=== PATIENT | male | born 1930 | race Caucasian/White ===

== ENCOUNTER 2016-09-23 10:17 | Emergency (ER) | payer OTHER ==
[2016-09-23 10:42] VITALS: BP 148/63; PULSE 55; TEMP 97.9; BMI 24.6
[2016-09-23] MEDS ORDERED: KETOROLAC TROMETHAMINE 60 MG/2 ML VIAL IM ONE (11:12)
[2016-09-23] MEDS ORDERED: KETOROLAC TROMETHAMINE 30 MG/1 ML VIAL ONE (11:13)
--- NOTE | 2016-09-23 11:18 | PDOC ---
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 slipped on soapy feet in the bathtub 3 days ago falling onto his buttocks and hitting his low back. Complaints of pain to his neck thoracic spine and buttocks. lives alone and has no one there to assist him. took a while to get out of the bathtub but since that time has been able to move and maintain his ADLs. Patient denies changes in bowels or bladder, denies any bleeding noted in urine or discoloration. Denies any head injury, has taken no medication for relief of same . Denies numbness or tingling in hands or feet, denies any mental status changes or significant headache. primarily is in his buttock left side and mid back. No shortness of breath chest pain or palpitation. 09/23/16 13:35 Occurred: reports: just prior to arrival Severity: reports: mild Pain Location: reports: none Modifying Factors: improves with: None Loss of Consciousness: no loss of consciousness Associated Symptoms (Fall): denies symptoms Past History - Travel Traveled outside of the country in the last 30 days: No Close contact w/someone who was outside of country & ill: No - Past Medical History Allergies/Adverse Reactions: Allergies Allergy/AdvReac Type Severity Reaction Status Date / Time No Known Allergies Allergy Verified 09/23/16 10:39 Home Medications: Ambulatory Orders Acyclovir 5% Cream [Zovirax 5% Cream -] 1 applic TP ASDIR 06/02/14 Amlodipine Besylate [Norvasc -] 5 mg PO DAILY 06/02/14 Bisacodyl [Ducodyl] 5 mg PO BID 06/02/14 Famotidine [Pepcid] 40 mg PO DAILY 06/02/14 Latanoprost 0.005% Eye Drops [Xalatan 0.005% Eye Drops -] 1 drop OU HS 06/02/14 Loratadine [Claritin -] 10 mg PO DAILY 06/02/14 Metoprolol Succinate [Toprol XL -] 100 mg PO DAILY 06/02/14 Mometasone Furoate [Nasonex] 1 - 2 inh NS DAILY 06/02/14 Montelukast Na [Singulair -] 10 mg PO HS 06/02/14 Olmesartan/Hydrochlorothiazide [Benicar Hct 40-25 mg Tablet] 1 each PO DAILY 11/08 Oxycodone HCl/Acetaminophen [Percocet 5-325 mg Tablet] 1 - 2 combo PO Q4H PRN # 20 tablet 06/02/14 Tramadol HCl [Ultram -] 50 mg PO ASDIR 06/02/14 Valacyclovir HCl [Valtrex -] 500 mg PO DAILY 06/02/14 Ibuprofen 400 mg PO Q6H PRN #20 tablet 09/23/16 HTN: Yes Suicide Attempt (Hx): No - Immunization History Immunization Up to Date: Yes - Psycho/Social/Smoking Cessation Hx Anxiety: No Suicidal Ideation: No Smoking History: Never smoked Have you smoked in the past 12 months: No Information on smoking cessation initiated: No Hx Alcohol Use: No Drug/Substance Use Hx: No Substance Use Type: None Trauma Specific PMHX - Complaint Specific PMHX Back Injury: Yes Neck Injury: Yes Review of Systems - Review of Systems Able to Perform ROS?: Yes Is the patient limited Slovenian proficient: Yes Constitutional: Yes: See HPI, Malaise. No: Symptoms Reported, Fever HEENTM: Yes: See HPI. No: Symptoms Reported ABD/GI: No: Symptoms Reported Musculoskeletal: Yes: Symptoms Reported, See HPI Integumentary: Yes: Symptoms Reported, See HPI, Bruising Neurological: Yes: See HPI. No: Symptoms reported, Headache All Other Systems: Reviewed and Negative *Physical Exam - Vital Signs Last Vital Signs Temp Pulse Resp BP Pulse Ox 97.9 F 55 L 17 148/63 100 09/23/16 10:38 09/23/16 10:38 09/23/16 10:38 09/23/16 10:38 09/23/16 10:38 - Physical Exam General Appearance: Yes: Nourished, Appropriately Dressed, Apparent Distress, Mild Distress HEENT: positive: SIGIFREDO, Normal ENT Inspection, TMs Normal, Pharynx Normal, Other Neck: positive: Tender (no head pain, swelling, ecchymoses or bruising. No hemotympanum, no evidence of head injury or skull fracture. Mild tenderness along the paravertebral spinous muscles without tenderness to bony prominence to cervical spine. Range of motion is intact.), Supple. negative: Lymphadenopathy (R), Lymphadenopathy (L) Respiratory/Chest: positive: Lungs Clear, Normal Breath Sounds Cardiovascular: positive: Regular Rhythm, Regular Rate Musculoskeletal: positive: Decreased Range of Motion (bending at waist. No crepitus or step-offs to any bony prominence or rib borders.), Muscle Spasm, Other (large bruise to left buttock approximately 10 cm x 15 cm, covering most of left butt cheek without exquisite tenderness. Has no bone tenderness. Back is supple and no reproduced tenderness along any aspect of spinous process starting from cervical spine and extending through coccyx. Range of motion is mildly limited secondary to tenderness to mid back and tense musculature at waist to mid back worse on the left than the right. Has no other lesions, bruises, deformities or reproduced tenderness along any bony prominence. Patient is ambulatory with mild stiffness. ). 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 Patient treated with ibuprofen with some relief of upper back pain before discharge. *DC/Admit/Observation/Transfer Diagnosis at time of Disposition: Fall at home Qualifiers: Encounter type: initial encounter Qualified Code(s): W19.XXXA - Unspecified fall, initial encounter Contusion Qualifiers: Encounter type: initial encounter Contusion area: lower back Qualified Code(s) : S30.0XXA - Contusion of lower back and pelvis, initial encounter - Discharge Dispostion Disposition: HOME Condition at time of disposition: Stable Admit: No - Prescriptions Prescriptions: Ibuprofen 400 mg PO Q6H PRN #20 tablet PRN Reason: Pain - Referrals Referrals: Joe Plasencia MD [Primary Care Provider] - - Patient Instructions Printed Discharge Instructions: DI for Contusion Additional Instructions: Rest, ice to area on and off for 15 minutes 4-6 times a day Avoid heavy lifting or exercise until pain and swelling is resolved or until further directed Keep area highly elevated to reduce swelling Use splints/Claudy wrap as directed Followup with orthopedist in one to 2 days if not improving, if significantly improved may wait one week for followup with orthopedist May use ibuprofen 400 mg tablets every 6 hours as needed for pain\ Cary's Occitan whiplash [place], hielo a la lou de encendido y apagado akila 15 minutos 4-6 veces al da evitar el levantamiento pesado o el ejercicio hasta que el dolor y la hinchazn se resuelve o hasta ms dirigido mantener el rj altamente elevado para reducir la hinchazn uso frulas/as envoltura usha dirigido seguimiento con ortopedista en delmis a 2 colbert si no mejora, si mejora significativamente puede esperar mak semana para el seguimiento con ortopedista puede usar ibuprofeno 400 mg tabletas cada 6 horas segn sea necesario para el dolor \ - Post Discharge Activity Work/School Note: Back to Work
== END 2016-09-23 11:41 | disposition home or self-care (01) ==
LOC: JERFT 10:17
PROC: 3E0233Z Introduction of Anti-inflammatory into Muscle, Percutaneous Approach (ICD-10-PCS; principal; 2016-09-23)
DX: S30.0XXA Contusion of lower back and pelvis, initial encounter (principal); W18.2XXA Fall in (into) shower or empty bathtub, initial encounter; Y93.E1 Activity, personal bathing and showering; Y92.031 Bathroom in apartment as the place of occurrence of the external cause; I10 Essential (primary) hypertension
CPT/HCPCS: 96372; 99281-25

== ENCOUNTER 2018-12-23 13:33 | Emergency (ER) | payer OTHER ==
[2018-12-23 13:47] VITALS: BP 136/66; PULSE 60; TEMP 97.8; BMI 22.9
--- NOTE | 2018-12-23 14:29 | PDOC ---
History of Present Illness - General Chief Complaint: Injury Stated Complaint: RT HAND\LF LEG INJURY Time Seen by Provider: 12/23/18 13:58 - History of Present Illness Initial Comments: 12/23/18 14:26 88-year-old male presents for evaluation of right hand and left ankle pain x3 days. Patient states he slipped out of his chair. Did not hit his head. No post injury nausea vomiting or visual changes. He combines of right wrist and left ankle pain Past History - Past Medical History Allergies/Adverse Reactions: Allergies Allergy/AdvReac Type Severity Reaction Status Date / Time No Known Allergies Allergy Verified 09/23/16 10:39 Home Medications: Ambulatory Orders Acyclovir 5% Cream [Zovirax 5% Cream -] 1 applic TP ASDIR 06/02/14 Amlodipine Besylate [Norvasc -] 5 mg PO DAILY 06/02/14 Bisacodyl [Ducodyl] 5 mg PO BID 06/02/14 Famotidine [Pepcid] 40 mg PO DAILY 06/02/14 Latanoprost 0.005% Eye Drops [Xalatan 0.005% Eye Drops -] 1 drop OU HS 06/02/14 Loratadine [Claritin -] 10 mg PO DAILY 06/02/14 Metoprolol Succinate [Toprol XL -] 100 mg PO DAILY 06/02/14 Mometasone Furoate [Nasonex] 1 - 2 inh NS DAILY 06/02/14 Montelukast Na [Singulair -] 10 mg PO HS 06/02/14 Olmesartan/Hydrochlorothiazide [Benicar Hct 40-25 mg Tablet] 1 each PO DAILY 11/08 Oxycodone HCl/Acetaminophen [Percocet 5-325 mg Tablet] 1 - 2 combo PO Q4H PRN # 20 tablet 06/02/14 Valacyclovir HCl [Valtrex -] 500 mg PO DAILY 06/02/14 traMADol HCL [Ultram -] 50 mg PO ASDIR 06/02/14 Ibuprofen 400 mg PO Q6H PRN #20 tablet 09/23/16 COPD: No HTN: Yes - Immunization History Immunization Up to Date: Yes - Psycho Social/Smoking Cessation Hx Smoking History: Never smoked Have you smoked in the past 12 months: No Information on smoking cessation initiated: No Hx Alcohol Use: No Drug/Substance Use Hx: No Substance Use Type: None Review of Systems - Review of Systems Musculoskeletal: Yes: Joint Pain *Physical Exam - Vital Signs Last Vital Signs Temp Pulse Resp BP Pulse Ox 97.8 F 60 18 136/66 100 12/23/18 13:44 12/23/18 13:44 12/23/18 13:44 12/23/18 13:44 12/23/18 13:44 - Physical Exam Comments: 12/23/18 14:27 Right wrist is swollen mildly erythemic with swelling at the dorsum of the hand. Upper extremity compartments are soft and nontender. There is decreased range of motion of the wrist tenderness over the DRUJ without tenderness over the radial or ulnar styloid no tenderness over the scaphoid. No gross sensorimotor deficits neurovascular intact patient makes a full fist Left ankle skin color temperature normal mild swelling about the lateral aspect of the left ankle tenderness over the area of the ATFL proximal fibula as well as along its distal course is nontender no tenderness about the medial lateral malleolus base of the fifth metatarsal or navicular. ED Treatment Course - RADIOLOGY Radiology Studies Ordered: Category Date Time Status ANKLE & FOOT-LEFT* [RAD] Stat Radiology 12/23/18 14:06 Taken WRIST W/HAND-RIGHT* [RAD] Stat Radiology 12/23/18 14:06 Taken Medical Decision Making - Medical Decision Making 12/23/18 14:27 Right wrist sprain and left ankle sprain. Weight-bear as tolerated with Aircast cock-up wrist splint for wrist pain follow-up with Ortho Discharge - Discharge Information Problems reviewed: Yes Clinical Impression/Diagnosis: Right wrist sprain, Left ankle sprain Condition: Stable Disposition: HOME - Admission No - Follow up/Referral Referrals: Gregory Gracia DO [Staff Physician] - - Patient Discharge Instructions Additional Instructions: Please wear the ankle Aircast for support as well as the wrist splint for support. Tylenol as directed for pain. Return to the emergency room for worsening symptoms. Without fail, please follow-up with orthopedic surgery in 1 to 2 days for further evaluation and treatment options. - Post Discharge Activity
== END 2018-12-23 14:45 | disposition home or self-care (01) ==
LOC: JERFT 13:33
PROC: 2W3QX1Z Immobilization of Right Lower Leg using Splint (ICD-10-PCS; principal; 2018-12-23)
DX: M25.531 Pain in right wrist (principal); S93.402A Sprain of unspecified ligament of left ankle, initial encounter; W07.XXXA Fall from chair, initial encounter; Y93.89 Activity, other specified; Y92.89 Other specified places as the place of occurrence of the external cause; I10 Essential (primary) hypertension
CPT/HCPCS: 29515; 73110-TC-RT-FY; 73130-TC-RT-FY; 73610-TC-LT-FY; 73630-TC-LT; 99282-25

== ENCOUNTER 2019-02-08 19:42 | Inpatient (IN) | payer OTHER ==
--- NOTE | 2019-02-08 19:58 | PDOC ---
Rapid Medical Evaluation Chief Complaint: Urinary Problem Time Seen by Provider: 02/08/19 19:55 Medical Evaluation: Allergies Allergy/AdvReac Type Severity Reaction Status Date / Time No Known Allergies Allergy Verified 02/08/19 19:54 02/08/19 19:57 This patient received a in-person evaluation in triage cc/HPI: inability to urinate x 3 days also reports lower abdominal pain and swelling of testicle, has implant in place c/o unsteadiness due to pain PE: unlabored breathing tenderness over pubis orders: wallace, urine, u/s This patient will proceed to ED for further evaluation Discharge Disposition - Diagnosis Urinary retention - Referrals - Patient Instructions - Post Discharge Activity
--- NOTE | 2019-02-08 20:50 | PDOC ---
Attending Attestation - Resident Resident Name: George Kapoor - ED Attending Attestation I have performed the following: I have examined & evaluated the patient, The case was reviewed & discussed with the resident, I agree w/resident's findings & plan - HPI HPI: 02/09/19 00:08 see resident hpi - Physicial Exam PE: 02/09/19 00:08 agree with resident exam - Medical Decision Making 02/09/19 00:09 88-year-old male with scrotal pain and urinary retention Due to inability to pass catheter urology was called and was able to pass a catheter using instrumentation at the bedside Exam consistent with scrotal cellulitis as well There are no signs at this time of Harris's gangrene Patient is afebrile with a normal white blood cell count and normal lactic acid There is no crepitance palpated on exam Ultrasound of the scrotum was reviewed We will remain with Barry in place, Zosyn and admission to medical service
[2019-02-08 21:38] LABS: BASO % 0.5 % (0-2.0); EOS % 0.7 % (0-4.5); HEMATOCRIT 30.7 % (35.4-49); HEMOGLOBIN 10.2 GM/dL (11.7-16.9); LYMPH % 14.1 % (8-40); MCH 32.5 pg (25.7-33.7); MCHC 33.2 g/dl (32.0-35.9); MEAN CELL VOLUME 98.1 fl (80-96); MEAN PLT VOLUME 8.9 fl (7.5-11.1); MONO % 10.3 % (3.8-10.2); NEUT % 74.4 % (42.8-82.8); PLATELET COUNT 228 K/MM3 (134-434); RBC 3.13 M/mm3 (4.00-5.60); RDW 14.3 % (11.9-15.9); WHITE BLOOD COUNT 7.8 K/mm3 (4.0-10.0)
[2019-02-08] MEDS ORDERED: LIDOCAINE HCL 2% JELLY 10 ML CARTRIDGE ONE ×3 (21:46→23:50)
[2019-02-08] MEDS ORDERED: morphine SULFATE 4 MG/ML VIAL ONE ×2 (22:04→23:53)
[2019-02-08 22:08] LABS: ALBUMIN 3.6 g/dl (3.4-5.0); BILIRUBIN,TOTAL 0.2 mg/dL (0.2-1); BLOOD UREA NITROGEN 23.7 mg/dL (7-18); CALCIUM 8.5 mg/dL (8.5-10.1); CREATININE 1.3 mg/dL (0.55-1.3); POTASSIUM 4.1 mmol/L (3.5-5.1); TOT PROT 7.6 g/dl (6.4-8.2)
[2019-02-08] MEDS ORDERED: LIDOCAINE HCL 2% JELLY 10 ML CARTRIDGE UR ONE (22:08)
[2019-02-08] MEDS ORDERED: morphine CARPU-JECT 2 MG/1 ML DISP.SYRIN SQ ONE (22:08)
--- NOTE | 2019-02-08 22:23 | PDOC ---
History of Present Illness - General Chief Complaint: Urinary Problem Stated Complaint: UTI SYX Time Seen by Provider: 02/08/19 19:55 History Source: Patient, Old Records Exam Limitations: Language Barrier (Pt is German speaking only. Utilized [employer].) - History of Present Illness Initial Comments: HPI: 88 y/o male presenting to [facility] ER complaining of penile, scrotal, and suprapubic swelling and tenderness. Pt has experienced difficulty voiding since last . States he has been able to force a small amount of urine. Denies observing hematuria, or flank pain. Denies h/o similar symptoms, however the pt has a h/o Prostate CA. He is s/p prostatectomy with penile prosthesis placement in 1993 at [facility]. It was revised recently. Pt believes it the procedure was performed at this facility in February 2018, but there is no record available for review in [facility]. Pt is in the process of undergoing outpatient evaluation for possible recurrent Prostate CA. Urologist: Dr. Marquez PCP: Dr. Plasencia Review of Systems: In addition to that documented in the HPI above, the additional ROS was obtained : Constitutional- Denies fevers or chills Head- Denies vision changes ENMT- Denies sore throat CV- Denies chest pain Resp- Denies SOB GI- Denies vomiting or diarrhea - Per HPI MSK- Denies recent trauma Skin- Denies new rashes Neuro- Denies new numbness or tingling or weakness Endocrine- Denies polyuria Heme- Denies bleeding or bruising Physical Examination: Vital signs and nursing notes reviewed. Constitutional- Elderly adult male in no acute distress but obvious discomfort. Head- Normocephalic. No obvious external signs of trauma. Cardiovascular / Chest- Regular rate. Peripheral pulses- radial pulses full. Respiratory- Breathing unlabored. No respiratory distress. Gastrointestinal- abdomen is distended and tender; worse in supra-pubic region. Male : Genital exam revealed normally developed male genitalia. Large amount of bilateral scrotal swelling with overlying erythema. Extremely tender. No perineal or perianal abnormalities are seen. No palpable subcutaneous emphysema. iv therapy nurse chaperoned exam. Neuro- Alert and oriented x4. Moving all four extremities spontaneously. Skin- Warm and dry. - No R or L CVA tenderness. Psych- Affect- appropriate. Mood- normal. Speech was non-labored, non- pressured. MDM: 88 y/o male presenting with difficulty voiding x5 days w/ significant prostate and urethral history. Afebrile. Vitals unremarkable for hypotension or tachycardia. Physical exam as described above. Septic workup ordered to evaluate for Harris's Gangrene. No leukocytosis, elevated lactic acid, or acidosis. Reviewed scrotal, bladder, and renal U/S reports. Concern for acute urinary retention. Attempted to place wallace catheter once without success. Consult placed w/ pts urologist of record. Dr. Leger evaluated the pt in the department and was able to place a catheter. No significant amount of blood was passed during the procedure. Would like the pt admitted for IV antibiotics for possible orchitis vs epididymitis vs scrotal cellulitis vs acute cystitis. Ordered Zosyn for broad spectrum abx coverage. Anticipate further urologic surgical intervention. 09 Feb 2019 00:31 AM Pt signed out to resident Dr. Perez after she was verbally appraised of the pts HPI, current ED course, and plan of management. Will f/u on pending admission to [facility]. George Kapoor M.D., PGY2 Emergency Medicine Resident Past History - Past Medical History Allergies/Adverse Reactions: Allergies Allergy/AdvReac Type Severity Reaction Status Date / Time No Known Allergies Allergy Verified 02/08/19 19:54 Home Medications: Ambulatory Orders Acyclovir 5% Cream [Zovirax 5% Cream -] 1 applic TP ASDIR 06/02/14 Amlodipine Besylate [Norvasc -] 5 mg PO DAILY 06/02/14 Bisacodyl [Ducodyl] 5 mg PO BID 06/02/14 Famotidine [Pepcid] 40 mg PO DAILY 06/02/14 Latanoprost 0.005% Eye Drops [Xalatan 0.005% Eye Drops -] 1 drop OU HS 06/02/14 Loratadine [Claritin -] 10 mg PO DAILY 06/02/14 Metoprolol Succinate [Toprol XL -] 100 mg PO DAILY 06/02/14 Mometasone Furoate [Nasonex] 1 - 2 inh NS DAILY 06/02/14 Montelukast Na [Singulair -] 10 mg PO HS 06/02/14 Olmesartan/Hydrochlorothiazide [Benicar Hct 40-25 mg Tablet] 1 each PO DAILY 11/08 Oxycodone HCl/Acetaminophen [Percocet 5-325 mg Tablet] 1 - 2 combo PO Q4H PRN # 20 tablet 06/02/14 Valacyclovir HCl [Valtrex -] 500 mg PO DAILY 06/02/14 traMADol HCL [Ultram -] 50 mg PO ASDIR 06/02/14 Ibuprofen 400 mg PO Q6H PRN #20 tablet 09/23/16 Cancer: Yes (prostate ca) COPD: No HTN: Yes Other medical history: prostate - Immunization History Immunization Up to Date: Yes - Psycho Social/Smoking Cessation Hx Smoking History: Never smoked Have you smoked in the past 12 months: No Hx Alcohol Use: No Drug/Substance Use Hx: No Substance Use Type: None *Physical Exam - Vital Signs Last Vital Signs Temp Pulse Resp BP Pulse Ox 97.9 F 83 18 164/76 100 02/08/19 19:54 02/08/19 22:14 02/08/19 22:14 02/08/19 22:14 02/08/19 22:14 ED Treatment Course - LABORATORY CBC & Chemistry Diagram: 02/08/19 21:23 02/08/19 21:23 - ADDITIONAL ORDERS Additional order review: Laboratory Results 02/08/19 21:23 Sodium 139 Potassium 4.1 Chloride 107 Carbon Dioxide 23 Anion Gap 9 BUN 23.7 H Creatinine 1.3 Est GFR (CKD-EPI)AfAm 56.07 Est GFR (CKD-EPI)NonAf 48.38 Random Glucose 114 H Calcium 8.5 Total Bilirubin 0.2 AST 30 ALT 21 Alkaline Phosphatase 81 Total Protein 7.6 Albumin 3.6 02/08/19 21:23 RBC 3.13 L MCV 98.1 H MCHC 33.2 RDW 14.3 MPV 8.9 Neutrophils % 74.4 D Lymphocytes % 14.1 D Monocytes % 10.3 H Eosinophils % 0.7 D Basophils % 0.5 - RADIOLOGY Radiology Studies Ordered: Category Date Time Status CXRPORT [CHEST X-RAY PORTABLE*] [RAD] Stat Radiology 02/08/19 22:09 Ordered KIDNEY / RENAL US [US] Stat Ultrasound 02/08/19 20:45 Completed PELVIC / BLADDER US [US] Stat Ultrasound 02/08/19 20:45 Completed - Medications Given in the ED: ED Medications Discontinued Medications Generic Name Dose Route Start Last Admin Trade Name Luiz PRN Reason Stop Dose Admin Lidocaine HCl 10 ml 02/08/19 22:08 02/08/19 22:14 Xylocaine 2% Uro-Jet UR 02/08/19 22:09 10 ml ONCE ONE Administration Morphine Sulfate 4 mg 02/08/19 22:08 02/08/19 22:16 Morphine Injection - SQ 02/08/19 22:09 4 mg ONCE ONE Administration Discharge - Discharge Information Problems reviewed: Yes Clinical Impression/Diagnosis: Urinary retention, Cystitis Condition: Stable - Admission Yes - Follow up/Referral Referrals: Joe Plasencia MD [Primary Care Provider] - - Patient Discharge Instructions - Post Discharge Activity
[2019-02-08 22:38] LABS: VENOUS PC02 32.3 mmHg (38-52); VENOUS PH 7.42 (7.31-7.41); VENOUS PO2 59.2 mmHg (28-48)
[2019-02-08 22:42] LABS: INR 1.06 (0.83-1.09); PROTHROMBIN TIME (PATIENT) 12.5 SEC (9.7-13.0)
[2019-02-08 22:45] LABS: ACTIVATED PTT 31.1 SECONDS (25.2-36.5)
[2019-02-08 23:11] LABS: PH,URINE 5.5 (5.0-8.0); URINE APPEARANCE Cloudy; URINE BILIRUBIN Negative (NEGATIVE); URINE COLOR Yellow; URINE GLUCOSE (UA) Negative (NEGATIVE); URINE KETONE Negative (NEGATIVE); URINE LEUK ESTERASE 3+ (NEGATIVE); URINE NITRITE Positive (NEGATIVE); URINE PROTEIN 1+ (NEGATIVE); URINE UROBILINOGEN 0.2 mg/dL (0.2-1.0)
[2019-02-08 23:45] LABS: EPI CELLS 6.6 /HPF (0-5/HPF); HYALINE CASTS 10.79 /lpf (0-8); URINE BACTERIA FEW /hpf (NEGATIVE); URINE RBC 2.1 /hpf (0-4); URINE WBC 47.3 /hpf (0-5)
[2019-02-09] MEDS ORDERED: morphine CARPU-JECT 2 MG/1 ML DISP.SYRIN SQ ONE (00:27)
[2019-02-09] MEDS ORDERED: PIPERACILLIN/TAZOB 3.375 GM 3.375 GM in DEXTROSE 5%-WATER - 50 ML IVPB ONE (00:44)
[2019-02-09] MEDS ORDERED: PIPERACILLIN/TAZOB 3.375 GM 3.375 GM/50 ML BAG IVPB ONE (00:55)
--- NOTE | 2019-02-09 01:36 | HP ---
Admitting History and Physical - Primary Care Physician PCP: Dr. Loving - Admission Chief Complaint: swelling, pain testciles, diffculty urination History of Present Illness: 88 year old male with PMHX of HTN, Prostate Ca, arrived to Emergency room with complains of penile, scrotal, and suprapubic swelling and tenderness. Pt has experienced difficulty voiding since last . States he has been able to force a small amount of urine. Denies observing hematuria, or flank pain. Patient denies h/o similar symptoms. Patient does have h/o of s/p prostatectomy with penile prosthesis placement in 1993 at [facility]. It was revised recently. Pt believes the procedure was performed at this facility in February 2018, but there is no record available for review in [facility]. Patient is in the process of undergoing outpatient evaluation for possible recurrent Prostate CA. History Source: Patient Limitations to Obtaining History: Language Barrier (used translation line) - Past Medical History Cardiovascular: Yes: HTN Gastrointestinal: Yes: Constipation, GERD Renal/: Yes: Other (prostate ca) - Past Surgical History Past Surgical History: Yes: Prostatectomy Additional Past Surgical History: s/p prostatectomy with penile prosthesis placement - Smoking History Smoking history: Never smoked Have you smoked in the past 12 months: No - Alcohol/Substance Use Hx Alcohol Use: No History of Substance Use: reports: None - Social History Usual Living Arrangement: Yes: With Child ADL: Independent History of Recent Travel: No Home Medications - Allergies Allergies/Adverse Reactions: Allergies Allergy/AdvReac Type Severity Reaction Status Date / Time No Known Allergies Allergy Verified 02/08/19 19:54 - Home Medications Home Medications: Ambulatory Orders Acyclovir 5% Cream [Zovirax 5% Cream -] 1 applic TP ASDIR 06/02/14 Amlodipine Besylate [Norvasc -] 5 mg PO DAILY 06/02/14 Bisacodyl [Ducodyl] 5 mg PO BID 06/02/14 Famotidine [Pepcid] 40 mg PO DAILY 06/02/14 Latanoprost 0.005% Eye Drops [Xalatan 0.005% Eye Drops -] 1 drop OU HS 06/02/14 Loratadine [Claritin -] 10 mg PO DAILY 06/02/14 Metoprolol Succinate [Toprol XL -] 100 mg PO DAILY 06/02/14 Mometasone Furoate [Nasonex] 1 - 2 inh NS DAILY 06/02/14 Montelukast Na [Singulair -] 10 mg PO HS 06/02/14 Olmesartan/Hydrochlorothiazide [Benicar Hct 40-25 mg Tablet] 1 each PO DAILY 11/08 Oxycodone HCl/Acetaminophen [Percocet 5-325 mg Tablet] 1 - 2 combo PO Q4H PRN # 20 tablet 06/02/14 Valacyclovir HCl [Valtrex -] 500 mg PO DAILY 06/02/14 traMADol HCL [Ultram -] 50 mg PO ASDIR 06/02/14 Ibuprofen 400 mg PO Q6H PRN #20 tablet 09/23/16 Family Medical History Family History: Denies Review of Systems - Review of Systems Constitutional: reports: No Symptoms Eyes: reports: No Symptoms HENT: reports: No Symptoms, Ocular Prosthesis Neck: reports: No Symptoms Cardiovascular: reports: No Symptoms Respiratory: reports: No Symptoms Gastrointestinal: reports: No Symptoms Genitourinary: reports: Testicular Pain, Testicular Swelling Musculoskeletal: reports: No Symptoms Integumentary: reports: No Symptoms Neurological: reports: No Symptoms Endocrine: reports: No Symptoms Hematology/Lymphatic: reports: No Symptoms Psychiatric: reports: No Symptoms Physical Examination Vital Signs: Vital Signs Temperature 97.9 F 02/08/19 19:54 Pulse Rate 73 02/09/19 00:23 Respiratory Rate 18 02/09/19 00:23 Blood Pressure 160/70 02/09/19 00:23 O2 Sat by Pulse Oximetry (%) 100 02/09/19 00:23 Constitutional: Yes: No Distress, Calm Eyes: Yes: Conjunctiva Clear, EOM Intact HENT: Yes: Atraumatic, Normocephalic Neck: Yes: Supple, Trachea Midline Cardiovascular: Yes: Regular Rate and Rhythm Respiratory: Yes: Regular, CTA Bilaterally Gastrointestinal: Yes: Normal Bowel Sounds, Distention, Tenderness Renal/: Yes: Scrotal Edema (Large amount of bilateral scrotal swelling with overlying erythema. Extremely tender.), Other Musculoskeletal: Yes: WNL Extremities: Yes: WNL Edema: No Peripheral Pulses WNL: Yes Neurological: Yes: Alert, Oriented Labs: CBC, BMP 02/08/19 21:23 02/08/19 21:23 Imaging - Results Chest X-ray: Report Reviewed (No acute infiltrate) Ultrasound: Report Reviewed (Scrotum/Bladder US: urinary retention ( 550ml), mild b/l hyronephrosis, interposed between the testes note is made of a non- specific 5X62.5x3.5 fluid structure containing intraluminal debris) Problem List - Problems (1) Cellulitis of scrotum Code(s): N49.2 - INFLAMMATORY DISORDERS OF SCROTUM (2) Cystitis Code(s): N30.90 - CYSTITIS, UNSPECIFIED WITHOUT HEMATURIA (3) Urinary retention Code(s): R33.9 - RETENTION OF URINE, UNSPECIFIED (4) Prostate CA Code(s): C61 - MALIGNANT NEOPLASM OF PROSTATE (5) HTN (hypertension) Code(s): I10 - ESSENTIAL (PRIMARY) HYPERTENSION (6) Constipation Code(s): K59.00 - CONSTIPATION, UNSPECIFIED (7) GERD (gastroesophageal reflux disease) Code(s): K21.9 - GASTRO-ESOPHAGEAL REFLUX DISEASE WITHOUT ESOPHAGITIS Assessment/Plan 88 year old male with PMHX of HTN, Prostate Ca, arrived to Emergency room with complains of penile, scrotal, and suprapubic swelling and tenderness. Pt has experienced difficulty voiding since last . States he has been able to force a small amount of urine. #Scrotal cellulitis #Acute Cystitis #Urinary retention # h/o of prostate CA, s/p prostatectomy with penile prosthesis (1993) UA: +3 leukocytes, follow UCX In ED patient given: lidocaine inserted wallace (Consult placed w/ pts urologist of record. Dr. Leger evaluated the pt in the department and was able to place a catheter) given morphine for pain, Zosyn for broad coverage Scrotum/Bladder US: urinary retention ( 550ml), mild b/l hyronephrosis, interposed between the testes note is made of a non-specific 5X62.5x3.5 fluid structure containing intraluminal debris - Continue with zosyn q 8h - follow up ID in Am - follow up urology in AM - maintain wallace cath, monitor I&O - pain management #HTN - Amlodipine Besylate 5 mg PO DAILY -Metoprolol Succinate 100 mg PO DAILY -Benicar Hct 40-25 mg Tablet 1 each PO DAILY -monitor BP # Constipation # GERD -Bisacodyl 5 mg PO BID -Famotidine 40 mg PO DAILY FEN: SHAKEEL diet, monitor lytes VTE: Heparin SQ Dispo: Med-surg Visit type - Emergency Visit Emergency Visit: Yes ED Registration Date: 02/09/19 Care time: The patient presented to the Emergency Department on the above date and was hospitalized for further evaluation of their emergent condition. - New Patient This patient is new to me today: Yes Date on this admission: 02/09/19 - Critical Care Critical Care patient: No
[2019-02-09] MEDS ORDERED: IBUPROFEN 400 MG TABLET (FP) PO PRN (02:20)
[2019-02-09] MEDS ORDERED: traMADol HCL 50 MG TABLET PO PRN (02:20)
[2019-02-09 04:26] VITALS: BMI 24.0
[2019-02-09] MEDS: HEPARIN NA (PORCINE) 5,000 UNITS/ML 1ML VIAL SQ SCH ×3 (06:10→23:02)
[2019-02-09 07:59] LABS: HEMOGLOBIN 9.7 GM/dL (11.7-16.9); MCH 32.6 pg (25.7-33.7); MCHC 33.4 g/dl (32.0-35.9); MEAN CELL VOLUME 97.6 fl (80-96); MEAN PLT VOLUME 8.6 fl (7.5-11.1); PLATELET COUNT 219 K/MM3 (134-434); RBC 2.98 M/mm3 (4.00-5.60); RDW 13.9 % (11.9-15.9); WHITE BLOOD COUNT 6.1 K/mm3 (4.0-10.0)
[2019-02-09 08:34] LABS: BLOOD UREA NITROGEN 18.2 mg/dL (7-18); CALCIUM 8.6 mg/dL (8.5-10.1); CREATININE 1.2 mg/dL (0.55-1.3); POTASSIUM 4.3 mmol/L (3.5-5.1)
[2019-02-09] MEDS ORDERED: DEXTROSE 5%-WATER - 50 ML IVPB ONE ×2 (08:50→17:15)
[2019-02-09] MEDS ORDERED: PIPERACILLIN/TAZOBACTAM 3.375 GM VIAL IVPB ONE ×2 (08:50→17:15)
[2019-02-09] MEDS: amLODIPine BESYLATE 5 MG TABLET (FP) PO SCH (09:31)
[2019-02-09] MEDS: FAMOTIDINE 20 MG TABLET PO SCH (09:31)
[2019-02-09] MEDS: BISACODYL 5 MG TABLET.DR (FP) PO SCH ×2 (09:31→23:02)
--- NOTE | 2019-02-09 09:31 | CONSULT ---
Consult Consult Specialty:: UROLOGY Reason for Consultation:: AUR - History of Present Illness History of Present Illness: 88 Y/O Male patient with history of Prostate Cancer- Radical prostatectomy, developed biochemical recurrence PSA 13. weak urine stream for 3 days until he developed AUR last night. patient seen in ER last night and underwent urethral dilation wallace catheter insertion. O/E patient seen at bedside last night in ER with distended bladder, bilateral scrotal swelling and tenderness - Past Medical History Cardio/Vascular: Yes: HTN Gastrointestinal: Yes: Constipation, GERD Renal/: Yes: Other (prostate ca) - Past Surgical History Past Surgical History: Yes: Prostatectomy - Alcohol/Substance Use Hx Alcohol Use: No History of Substance Use: reports: None - Smoking History Smoking history: Never smoked Have you smoked in the past 12 months: No - Social History ADL: Independent History of Recent Travel: No Home Medications - Allergies Allergies/Adverse Reactions: Allergies Allergy/AdvReac Type Severity Reaction Status Date / Time No Known Allergies Allergy Verified 02/08/19 19:54 - Home Medications Home Medications: Ambulatory Orders Metoprolol Succinate [Toprol XL -] 0 mg PO DAILY 06/02/14 Olmesartan/Hydrochlorothiazide [Benicar Hct 40-25 mg Tablet] 1 each PO DAILY 11/08 Oxycodone HCl/Acetaminophen [Percocet 5-325 mg Tablet] 1 - 2 combo PO Q4H PRN # 20 tablet 06/02/14 Valacyclovir HCl [Valtrex -] 500 mg PO DAILY 06/02/14 traMADol HCL [Ultram -] 50 mg PO ASDIR 06/02/14 Physical Exam Vital Signs: Vital Signs Temperature 98.5 F 02/09/19 05:47 Pulse Rate 70 02/09/19 05:47 Respiratory Rate 20 02/09/19 05:47 Blood Pressure 138/60 02/09/19 05:47 O2 Sat by Pulse Oximetry (%) 97 02/09/19 03:49 Labs: CBC, BMP 02/09/19 07:23 02/09/19 07:23 Assessment/Plan AUR PC with biochemical recurrence Bilateral hydronephrosis Bilateral epidid-orchitis Plan: keep wallace catheter and IV antibiotic scrotal support will schedule him for Cystoscopy and Bilateral RGS tomorrow
--- NOTE | 2019-02-09 09:42 | EKG ---
Test Reason : Blood Pressure : / mmHG Vent. Rate : 079 BPM Atrial Rate : 079 BPM P-R Int : 170 ms QRS Dur : 086 ms QT Int : 402 ms P-R-T Axes : 047 -29 038 degrees QTc Int : 460 ms NORMAL SINUS RHYTHM NONSPECIFIC ST ABNORMALITY ABNORMAL ECG WHEN COMPARED WITH ECG OF 02-JUL-2016 10:11, PREMATURE VENTRICULAR COMPLEXES ARE NO LONGER PRESENT VENT. RATE HAS INCREASED BY 26 BPM Confirmed by MD Gamal, Tanner ([id number]) on 02/09/2019 9:42:15 AM Referred By: Confirmed By:Tanner Yeung MD
[2019-02-09] MEDS ORDERED: PATIENT'S OWN MEDICATION (NON-FORMULARY) (Olmesartan/Hydrochlorothiazide [Benicar Hct 40-2 PO SCH (10:00)
[2019-02-09] MEDS ORDERED: PATIENT'S OWN MEDICATION (NON-FORMULARY) (Famotidine [Pepcid] 40 MG) PO SCH (10:00)
[2019-02-09] MEDS ORDERED: PIPERACILLIN/TAZOB 3.375 GM 3.375 GM in DEXTROSE 5%-WATER - 50 ML IVPB SCH (10:00)
[2019-02-09] MEDS: LOSARTAN 50MG/HCTZ 12.5MG 1 TAB (FP) PO SCH (11:18)
--- NOTE | 2019-02-09 11:26 | PN ---
Progress Note, Physician Chief Complaint: BL scrotal swelling Prostate ca with biochemical recurrence Bilateral hydronephrosis Bilateral epidid-orchitis History of Present Illness: NAD Seen by Urology Plan for cystoscopy in AM On IV abx - Current Medication List Current Medications: Active Medications Amlodipine Besylate (Norvasc -) 5 mg PO DAILY [facility] Last Admin: 02/09/19 09:31 Dose: 5 mg Bisacodyl (Dulcolax -) 5 mg PO BID [facility] Last Admin: 02/09/19 09:31 Dose: 5 mg Famotidine (Pepcid -) 20 mg PO DAILY [facility] Last Admin: 02/09/19 09:31 Dose: 20 mg HCTZ/Losartan Potassium (Hyzaar -) 2 tab PO DAILY [facility] Last Admin: 02/09/19 11:18 Dose: 2 tab Heparin Sodium (Porcine) (Heparin -) 5,000 unit SQ TID [facility] Last Admin: 02/09/19 06:10 Dose: 5,000 unit Piperacillin Sod/Tazobactam (Sod 3.375 gm/ Dextrose) 50 mls @ 100 mls/hr IVPB Q8H-IV [facility]; Protocol Piperacillin Sod/Tazobactam (Sod 3.375 gm/ Dextrose) 50 mls @ 100 mls/hr IVPB Q8H-IV [facility] Stop: 02/10/19 02:29 Last Admin: 02/09/19 09:31 Dose: 100 mls/hr Ibuprofen (Motrin -) 400 mg PO Q6H PRN PRN Reason: PAIN Metoprolol Succinate (Toprol Xl -) 100 mg PO DAILY [facility] Last Admin: 02/09/19 09:31 Dose: 100 mg Tramadol HCl (Ultram -) 50 mg PO BID PRN PRN Reason: PAIN LEVEL 7 - 10 - Objective Vital Signs: Vital Signs Temperature 98.5 F 02/09/19 05:47 Pulse Rate 70 02/09/19 05:47 Respiratory Rate 20 02/09/19 05:47 Blood Pressure 138/60 02/09/19 05:47 O2 Sat by Pulse Oximetry (%) 97 02/09/19 03:49 Constitutional: Yes: Well Nourished, No Distress, Calm Cardiovascular: Yes: Regular Rate and Rhythm Respiratory: Yes: Regular Gastrointestinal: Yes: Normal Bowel Sounds, Soft Genitourinary: Yes: Barry Present Musculoskeletal: Yes: WNL Extremities: Yes: WNL Edema: No Peripheral Pulses WNL: Yes Neurological: Yes: Alert, Oriented Psychiatric: Yes: Alert, Oriented Labs: CBC, BMP 02/09/19 07:23 02/09/19 07:23 INR, PTT INR 1.06 (0.83-1.09) 02/08/19 22:20 Problem List - Problems (1) Prostate CA Problems reviewed: Yes Code(s): C61 - MALIGNANT NEOPLASM OF PROSTATE (2) Hydronephrosis Problems reviewed: Yes Code(s): N13.30 - UNSPECIFIED HYDRONEPHROSIS (3) Epididymo-orchitis, acute Assessment/Plan: -IV abx -Barry catheter -Urology consult -Cystoscopy in AM -ID consult -afebrile -no leukocytosis Problems reviewed: Yes Code(s): N45.3 - EPIDIDYMO-ORCHITIS Assessment/Plan see problem list
--- NOTE | 2019-02-09 13:06 | PN ---
Progress Note (short form) - Note Progress Note: ID CONSULT DICTATED R ORCHO- EPIDIDYMITIS ACUTE URINARY RETENTION UTI HX PROSTATE CA PENDING C/S EMPIRIC ZOSYN + STAT DOSE VANCOMYCIN
[2019-02-09] MEDS ORDERED: VANCOMYCIN 1 GRAM (PRE-DOCKED) 1,000 MG/250 ML BAG IVPB ONE (13:11)
--- NOTE | 2019-02-09 14:00 | CONS ---
INFECTIOUS DISEASE CONSULTATION DATE OF CONSULTATION: DATE OF DICTATION: 02/09/2019 HISTORY: The patient is an 88-year-old male with a history of prostate cancer status post radical prostatectomy evaluated for acute urinary retention and epididymitis. He presented to the hospital on February 09, 2019, with complaints of scrotal pain and acute urinary retention. He had been unable to void for the past 3 days. He also complained of lower abdominal pain as well as testicular swelling and pain. In the emergency room, there was difficulty passing a catheter. Urology was consulted and did a urethral dilatation with insertion of a Barry catheter. Urinalysis showed bilateral hydronephrosis. He was clinically found to have right epididymal induration, swelling, and tenderness. He was empirically treated with vancomycin and Zosyn. He denied any proceeding dysuria or hematuria. No complaints of fever or chills. PAST SURGICAL HISTORY: Status post prostatectomy and penile prosthesis in 1993. ALLERGIES: No known allergies. MEDICATIONS: Include vancomycin, Zosyn, amlodipine, Pepcid, ibuprofen, losartan, metoprolol, Tramadol. SOCIAL HISTORY: He lives at home in the community. He is a nonsmoker, nondrinker. SYSTEMS REVIEW: Neurologic: No loss of consciousness, seizure activity, focal weakness. Cardiac: Negative chest pain or palpitations. Respiratory: Negative cough or sputum production. Gastrointestinal: Negative vomiting or diarrhea. Genitourinary: As per HPI. LABORATORY DATA: White count 6.1, hematocrit 29.0, platelets 219, BUN 18, creatinine 1.2. Urinalysis; 47 white cells. Chest x-ray: Negative for acute infiltrate. PHYSICAL EXAMINATION: General: He is awake and alert. He is not acutely toxic appearing. Vital Signs: Temperature 98.5, blood pressure 138/60, pulse 70 regular, respirations 20 per minute. HEENT: Sclerae anicteric. Heart: Sounds S1, S2. Lungs: Clear. Abdomen: Soft. There is some mild suprapubic tenderness to palpation. Genitourinary: Examination of the genitalia, there is diffuse scrotal swelling and slight erythema. There is right epididymal swelling, induration, and tenderness. No crepitus or fluctuance. Extremities: Negative for edema. IMPRESSION: 1. Acute right orchoepididymitis. 2. Acute urinary retention. 3. Urinary tract infection. 4. Hydronephrosis. PLAN: Await cultures. Empiric antibiotic coverage with Zosyn and STAT dose vancomycin. Urology follow up. Thank you for the kind referral ASHLEY VICKERS M.D. BRITTNY/[id number]
[2019-02-09] MEDS: PIPERACILLIN/TAZOB 3.375 GM 3.375 GM in DEXTROSE 5%-WATER - 50 ML IVPB SCH (17:17)
[2019-02-10] MEDS ORDERED: PIPERACILLIN/TAZOBACTAM 3.375 GM VIAL IVPB ONE ×3 (01:24→17:37)
[2019-02-10] MEDS ORDERED: DEXTROSE 5%-WATER - 50 ML IVPB ONE ×3 (01:25→17:37)
[2019-02-10] MEDS: PIPERACILLIN/TAZOB 3.375 GM 3.375 GM in DEXTROSE 5%-WATER - 50 ML IVPB SCH ×3 (01:32→17:48)
[2019-02-10] MEDS ORDERED: PT OWN MED DRAWER 7, Y5N ONE ×2 (09:10→09:11)
[2019-02-10] MEDS: LOSARTAN 50MG/HCTZ 12.5MG 1 TAB (FP) PO SCH (09:11)
[2019-02-10] MEDS: amLODIPine BESYLATE 5 MG TABLET (FP) PO SCH (09:11)
[2019-02-10] MEDS: BISACODYL 5 MG TABLET.DR (FP) PO SCH ×2 (09:15→21:45)
[2019-02-10] MEDS: FAMOTIDINE 20 MG TABLET PO SCH (09:15)
--- NOTE | 2019-02-10 09:18 | CONS ---
DATE OF CONSULTATION: 02/09/2019 The patient is an 88-year-old male who was admitted via the emergency room with acute urinary retention. He was found to have bilateral hydroureteronephrosis. The patient underwent urethral dilation and Barry placement. The patient has a history of prostate cancer. He underwent a radical retropubic prostatectomy 15 years ago. He also has a penile prosthesis. Presently, the patient is complaining of right epididymal pain and swelling. He has been treated with IV vancomycin as well as Zosyn. His latest laboratory data reveals a white count of 6.1, hemoglobin of 9.7 and hematocrit of 29. Platelets were 219. BUN and creatinine were 18.2 and 1.2. Random glucose was 82. IMPRESSION: At present, acute urinary retention with bilateral hydroureteronephrosis. PLAN: The patient will need cystoscopy, possible TUVP of the bladder neck, bilateral retrograde pyelograms and possible placement of a J-J stent. This was explained to the patient and he agrees. We will keep the patient NPO after midnight. Luis [id number]
--- NOTE | 2019-02-10 10:25 | PN ---
Progress Note, Physician Chief Complaint: BL scrotal swelling Prostate ca with biochemical recurrence Bilateral hydronephrosis Bilateral epidid-orchitis History of Present Illness: NAD Seen by Urology Plan for cystoscopy today On IV abx - Current Medication List Current Medications: Active Medications Amlodipine Besylate (Norvasc -) 5 mg PO DAILY [facility] Last Admin: 02/10/19 09:11 Dose: 5 mg Bisacodyl (Dulcolax -) 5 mg PO BID [facility] Last Admin: 02/10/19 09:15 Dose: Not Given Famotidine (Pepcid -) 20 mg PO DAILY [facility] Last Admin: 02/10/19 09:15 Dose: Not Given HCTZ/Losartan Potassium (Hyzaar -) 2 tab PO DAILY [facility] Last Admin: 02/10/19 09:11 Dose: 2 tab Heparin Sodium (Porcine) (Heparin -) 5,000 unit SQ TID [facility] Last Admin: 02/09/19 23:02 Dose: 5,000 unit Piperacillin Sod/Tazobactam (Sod 3.375 gm/ Dextrose) 50 mls @ 100 mls/hr IVPB Q8H-IV [facility]; Protocol Last Admin: 02/10/19 09:15 Dose: 100 mls/hr Ibuprofen (Motrin -) 400 mg PO Q6H PRN PRN Reason: PAIN Metoprolol Succinate (Toprol Xl -) 100 mg PO DAILY [facility] Last Admin: 02/10/19 09:11 Dose: 100 mg Tramadol HCl (Ultram -) 50 mg PO BID PRN PRN Reason: PAIN LEVEL 7 - 10 - Objective Vital Signs: Vital Signs Temperature 98.1 F 02/10/19 09:00 Pulse Rate 65 02/10/19 09:00 Respiratory Rate 16 02/10/19 09:00 Blood Pressure 129/71 02/10/19 09:00 O2 Sat by Pulse Oximetry (%) 96 02/10/19 09:00 Constitutional: Yes: Well Nourished, No Distress, Calm Cardiovascular: Yes: Regular Rate and Rhythm Respiratory: Yes: Regular Gastrointestinal: Yes: Normal Bowel Sounds, Soft Genitourinary: Yes: Barry Present Musculoskeletal: Yes: WNL Extremities: Yes: WNL Edema: No Peripheral Pulses WNL: Yes Neurological: Yes: Alert, Oriented Psychiatric: Yes: Alert, Oriented Labs: CBC, BMP 02/09/19 07:23 02/09/19 07:23 INR, PTT INR 1.06 (0.83-1.09) 02/08/19 22:20 Problem List - Problems (1) Prostate CA Problems reviewed: Yes Code(s): C61 - MALIGNANT NEOPLASM OF PROSTATE (2) Hydronephrosis Problems reviewed: Yes Code(s): N13.30 - UNSPECIFIED HYDRONEPHROSIS (3) Epididymo-orchitis, acute Assessment/Plan: -IV abx -Barry catheter -Urology consult -Cystoscopy today -ID consult -afebrile -no leukocytosis -UC: Microbiology 02/08/19 22:15 Urine - Urine Clean Catch Urine Culture - Preliminary Lactose Fermenting Neg Bacilli Problems reviewed: Yes Code(s): N45.3 - EPIDIDYMO-ORCHITIS Assessment/Plan see problem list
[2019-02-10] MEDS ORDERED: ONDANSETRON 4 MG/2 ML VIAL IVPUSH PRN (13:06)
[2019-02-10] MEDS ORDERED: ACETAMINOPHEN 325 MG TABLET (FP) PO PRN ×3 (13:15→13:18)
[2019-02-10] MEDS ORDERED: TAMSULOSIN HCL 0.4 MG CAP PO ONE (13:15)
[2019-02-10] MEDS ORDERED: PROPOFOL 20 ML ONE ×2 (13:22→13:23)
[2019-02-10] MEDS ORDERED: SUCCINYLCHOLINE CHLORIDE 200 MG/10 ML SYRINGE ONE (13:23)
[2019-02-10] MEDS ORDERED: EPHEDRINE SULFATE/0.9% NACL/PF 50 MG/10 ML SYRINGE NR ONE (13:23)
[2019-02-10] MEDS ORDERED: LIDOCAINE HCL/PF 2% SDV 5ML VIAL ONE (13:27)
[2019-02-10] MEDS ORDERED: ceFAZolin SODIUM 1 GM VIAL ONE (13:39)
[2019-02-10] MEDS ORDERED: ceFAZolin SODIUM 1 GM VIAL IVPB ONE (13:39)
--- NOTE | 2019-02-10 14:13 | PREOP ---
DATE OF ADMISSION: 02/09/2019 DATE OF DICTATION: 02/10/2019 HISTORY OF PRESENT ILLNESS: Patient is 88-year-old, male admitted via the emergency room with acute urinary retention and bilateral hydroureteronephrosis. He does have a history of prostate cancer, diagnosed in 1993. Recently, he was found to have a PSA of 12. He has been undergoing a workup. He is status post prostatectomy and a penile prosthesis in 1993. He also had swelling and tenderness of his right epididymis and testicle. ALLERGIES: He denies any allergies. MEDICATIONS: Presently, he is on Zosyn, vancomycin, Norvasc, losartan, ibuprofen, and Pepcid. HABITS: He denies any ethanolism. LABORATORIES: His white count is 6.1. His BUN and creatinine are 28 over 1.2, respectively. His hematocrit is 29. IMPRESSION: At present is acute right epididymal orchiditis, acute retention, bilateral hydroureteronephrosis. PLAN: Will take patient to OR for a cystoscopy, possible vaporization of bladder neck contraction, bilateral retrograde pyelograms, and possible bilateral double-J stents. Will follow. Luis [id number]
[2019-02-10] MEDS ORDERED: FUROSEMIDE 40 MG/4 ML INJECTABLE VIAL ONE (14:17)
--- NOTE | 2019-02-10 14:45 | OP ---
Operative Note - Note: Operative Date: 02/10/19 Pre-Operative Diagnosis: h/o ca. prostate, bladder neck contraction, deep urehteral stricture disease Operation: cysto, urethral dilation, attempted arya. retrograde pyelograms, wallace placement Findings: severe radiation cystitis,urethritis bladder neck contraction and scrotal edema Post-Operative Diagnosis: Same as Pre-op Surgeon: Breonna Marquez Anesthesia: General Estimated Blood Loss (mls): 10 Drains & Tubes with Location: 20f 20cc wallace Drains, Volume Out (mls): 0 Blood Volume Replaced (mls): 0 Fluid Volume Replaced (mls): 0 Operative Report Dictated: Yes
--- NOTE | 2019-02-10 15:21 | OP ---
DATE OF OPERATION: 02/10/2019 PREOPERATIVE DIAGNOSES: Urethral stricture disease, bladder outlet obstruction, history of carcinoma of prostate, status post radiation therapy to prostate. POSTOPERATIVE DIAGNOSES: Severe bladder neck contraction, radiation cystitis, and radiation urethritis. OPERATIVE PROCEDURE: Cystourethroscopy, attempted bilateral retrograde pyelograms, vaporization of the bladder neck, and placement of Barry catheter. ANESTHESIA: General. Under above-stated anesthesia, patient was prepped and draped in the usual sterile manner. He was placed in the dorsal lithotomy position. Cystoscopy under direct vision revealed a severely hemorrhagic urethra, prostatic urethra, revealed multiple false passages from previous attempts at placement of a Barry. The bladder neck appeared to be hypertrophic and scarred. The bladder was entered, which also revealed effects of radiation. There was a severe, grade 2-3 trabeculation. Ureteral orifices were unable to be found. Multiple attempts at passage of a Glidewire into the right and/or left ureteral orifice were unsuccessful. There were multiple diverticula which appeared to resemble ureteral orifices. After multiple attempts, this was abandoned. A Vaportrode was introduced, and vaporization of the bladder neck was performed in the usual fashion. After the scope was removed, multiple attempts at passage of a Barry were unsuccessful. Therefore, a Mandarin wire inserted into a 20-[place] Barry and shaped in an arched manner was placed into the bladder. Return of bloody urine was seen. Palpation of the catheter revealed proper placement of the catheter. Therefore, the patient was sent to the recovery room in good condition. He will need a suprapubic cystotomy at a later date. Luis [id number]
[2019-02-10] MEDS: HEPARIN NA (PORCINE) 5,000 UNITS/ML 1ML VIAL SQ SCH ×2 (15:24→21:45)
[2019-02-10] MEDS: LACTATED RINGERS SOLUTION 1,000 ML IV SCH (17:00)
--- NOTE | 2019-02-10 17:56 | PN ---
Progress Note (short form) - Note Progress Note: events noted s/p OR today with cystoscopy urethral dialtation and placement of wallace- patient with severe radiation cystitis he is alert postop without complaints Vital Signs Period Temp Pulse Resp BP Sys/Estevez Pulse Ox Last 24 Hr 97.9 F-98.9 F 59-94 13-20 102-169/48-104 95-99 cor-rrr lungs decreased bs at bases abd soft,nt +scrotal edema with induration +wallace ext no edema CBC, BMP 02/09/19 07:23 02/09/19 07:23 Microbiology 02/08/19 22:15 Urine - Urine Clean Catch Urine Culture - Preliminary Lactose Fermenting Neg Bacilli 02/09/19 00:24 Blood - Peripheral Venous Blood Culture - Preliminary NO GROWTH OBTAINED AFTER 24 HOURS, INCUBATION TO CONTINUE FOR 4 DAYS. 02/09/19 00:24 Blood - Peripheral Venous Blood Culture - Preliminary NO GROWTH OBTAINED AFTER 24 HOURS, INCUBATION TO CONTINUE FOR 4 DAYS. a/p continue zosyn for UTI s/p wallace placement
[2019-02-10] MEDS: oxyCODONE HCL 5 MG TABLET PO PRN (20:13)
[2019-02-11] MEDS ORDERED: PIPERACILLIN/TAZOBACTAM 3.375 GM VIAL IVPB ONE ×2 (02:42→10:30)
[2019-02-11] MEDS ORDERED: DEXTROSE 5%-WATER - 50 ML IVPB ONE ×2 (02:43→10:31)
[2019-02-11] MEDS: oxyCODONE HCL 5 MG TABLET PO PRN ×2 (02:47→09:42)
[2019-02-11] MEDS: PIPERACILLIN/TAZOB 3.375 GM 3.375 GM in DEXTROSE 5%-WATER - 50 ML IVPB SCH ×2 (02:47→10:56)
[2019-02-11] MEDS: HEPARIN NA (PORCINE) 5,000 UNITS/ML 1ML VIAL SQ SCH ×3 (06:03→21:16)
[2019-02-11] MEDS: amLODIPine BESYLATE 5 MG TABLET (FP) PO SCH (09:43)
[2019-02-11] MEDS: BISACODYL 5 MG TABLET.DR (FP) PO SCH ×2 (09:43→21:16)
[2019-02-11] MEDS: FAMOTIDINE 20 MG TABLET PO SCH (09:45)
--- NOTE | 2019-02-11 10:03 | PN ---
Progress Note, Physician Chief Complaint: Testicular Swelling Prostate CA with Biochemical Recurrence B/L Hydronephrosis History of Present Illness: Previous notes and events reviewed awake and alert NAD complain of testicular pain POD #1 Cystoscopy no leukocytosis - Current Medication List Current Medications: Active Medications Acetaminophen (Tylenol -) 325 mg PO Q4H PRN PRN Reason: PAIN LEVEL 1-5 Stop: 02/11/19 13:14 Acetaminophen (Tylenol -) 650 mg PO Q6H PRN PRN Reason: PAIN LEVEL 1-5 Amlodipine Besylate (Norvasc -) 5 mg PO DAILY [facility] Last Admin: 02/11/19 09:43 Dose: 5 mg Bisacodyl (Dulcolax -) 5 mg PO BID [facility] Last Admin: 02/11/19 09:43 Dose: 5 mg Famotidine (Pepcid -) 20 mg PO DAILY [facility] Last Admin: 02/11/19 09:45 Dose: 20 mg HCTZ/Losartan Potassium (Hyzaar -) 2 tab PO DAILY [facility] Last Admin: 02/10/19 09:11 Dose: 2 tab Heparin Sodium (Porcine) (Heparin -) 5,000 unit SQ TID [facility] Last Admin: 02/11/19 06:03 Dose: 5,000 unit Piperacillin Sod/Tazobactam (Sod 3.375 gm/ Dextrose) 50 mls @ 100 mls/hr IVPB Q8H-IV [facility]; Protocol Last Admin: 02/11/19 02:47 Dose: 100 mls/hr Lactated Ringer's (Lactated Ringers Solution) 1,000 mls @ 75 mls/hr IV ASDIR [facility] Last Admin: 02/10/19 17:00 Dose: 75 mls/hr Ibuprofen (Motrin -) 400 mg PO Q6H PRN PRN Reason: PAIN Metoprolol Succinate (Toprol Xl -) 100 mg PO DAILY [facility] Last Admin: 02/11/19 09:43 Dose: 100 mg Ondansetron HCl (Zofran Injection) 4 mg IVPUSH Q6H PRN PRN Reason: NAUSEA AND/OR VOMITING Oxycodone HCl (Roxicodone -) 5 mg PO Q4H PRN PRN Reason: PAIN LEVEL 1-5 Stop: 02/11/19 13:18 Last Admin: 02/11/19 09:42 Dose: 5 mg Tramadol HCl (Ultram -) 50 mg PO BID PRN PRN Reason: PAIN LEVEL 7 - 10 - Objective Vital Signs: Vital Signs Temperature 98.3 F 02/11/19 02:25 Pulse Rate 75 02/11/19 02:25 Respiratory Rate 17 02/11/19 02:25 Blood Pressure 114/53 L 02/11/19 02:25 O2 Sat by Pulse Oximetry (%) 96 02/10/19 21:00 Constitutional: Yes: No Distress, Calm Eyes: Yes: Conjunctiva Clear HENT: Yes: Atraumatic Cardiovascular: Yes: Regular Rate and Rhythm Respiratory: Yes: Regular, CTA Bilaterally Gastrointestinal: Yes: Normal Bowel Sounds, Soft Genitourinary: Yes: Barry Present, Scrotal Edema Extremities: Yes: WNL Edema: No Neurological: Yes: Alert, Oriented Psychiatric: Yes: Alert, Oriented Labs: CBC, BMP 02/09/19 07:23 02/09/19 07:23 INR, PTT INR 1.06 (0.83-1.09) 02/08/19 22:20 Microbiology 02/09/19 00:24 Blood - Peripheral Venous Blood Culture - Preliminary NO GROWTH OBTAINED AFTER 48 HOURS, INCUBATION TO CONTINUE FOR 3 DAYS. 02/09/19 00:24 Blood - Peripheral Venous Blood Culture - Preliminary NO GROWTH OBTAINED AFTER 48 HOURS, INCUBATION TO CONTINUE FOR 3 DAYS. 02/08/19 22:15 Urine - Urine Clean Catch Urine Culture - Preliminary Lactose Fermenting Neg Bacilli Problem List - Problems (1) Cellulitis of scrotum Assessment/Plan: -ID on board -no leukocytosis -afebrile -pain control -Scrotal US shows no doppler evidence of torsion, diffuse scrotal edema, bilateral hydroceles moderate in size, interposed between testes is nonspecific 5x3.6x3.5cm fluid structurecontaining intraluminal debris -Urology on board Code(s): N49.2 - INFLAMMATORY DISORDERS OF SCROTUM (2) Constipation Assessment/Plan: -Dulcolax Code(s): K59.00 - CONSTIPATION, UNSPECIFIED (3) Cystitis Assessment/Plan: -ID on board -tati leukocytosis -afebrile -UA shows 3+ leuks, 1+ protein -UC prelim positive -Zosyn -FC Code(s): N30.90 - CYSTITIS, UNSPECIFIED WITHOUT HEMATURIA (4) GERD (gastroesophageal reflux disease) Assessment/Plan: -Famotidine Code(s): K21.9 - GASTRO-ESOPHAGEAL REFLUX DISEASE WITHOUT ESOPHAGITIS (5) HTN (hypertension) Assessment/Plan: -Amlodipine, Losartan/HCTZ, Metoprolol -low Na diet Code(s): I10 - ESSENTIAL (PRIMARY) HYPERTENSION (6) Hydronephrosis Assessment/Plan: -Urology on board -POD #1 Cystoscopy -Bladder US urine retention, mild bilateral hydronephrosis noted secondary to urinary bladder overdistention -will need suprapubic cystoscopy at later date -FC Code(s): N13.30 - UNSPECIFIED HYDRONEPHROSIS (7) Prostate CA Code(s): C61 - MALIGNANT NEOPLASM OF PROSTATE (8) Urinary retention Code(s): R33.9 - RETENTION OF URINE, UNSPECIFIED Assessment/Plan see problem list dvt ppx begin d/c planning when swiched to oral antibiotics
[2019-02-11] MEDS: LOSARTAN 50MG/HCTZ 12.5MG 1 TAB (FP) PO SCH (11:01)
--- NOTE | 2019-02-11 11:58 | PN ---
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 02/09/19 00:24 Blood - Peripheral Venous Blood Culture - Preliminary NO GROWTH OBTAINED AFTER 48 HOURS, INCUBATION TO CONTINUE FOR 3 DAYS. a/p citrobacter UTI severe scrotal swelling sensitivities reviewed will switch to ertapenem s/p cystoscopy and wallace placement
[2019-02-11] MEDS: LACTATED RINGERS SOLUTION 1,000 ML IV SCH ×2 (14:18→14:24)
[2019-02-11] MEDS: ERTAPENEM SODIUM 1 GM in SODIUM CHLORIDE 50 ML IVPB SCH (15:18)
[2019-02-12] MEDS: LACTATED RINGERS SOLUTION 1,000 ML IV SCH (00:44)
[2019-02-12] MEDS: HEPARIN NA (PORCINE) 5,000 UNITS/ML 1ML VIAL SQ SCH ×3 (06:07→21:12)
--- NOTE | 2019-02-12 08:00 | PN ---
Progress Note, Physician - Current Medication List Current Medications: Active Medications Acetaminophen (Tylenol -) 650 mg PO Q6H PRN PRN Reason: PAIN LEVEL 1-5 Amlodipine Besylate (Norvasc -) 5 mg PO DAILY [facility] Last Admin: 02/11/19 09:43 Dose: 5 mg Bisacodyl (Dulcolax -) 5 mg PO BID [facility] Last Admin: 02/11/19 21:16 Dose: 5 mg Famotidine (Pepcid -) 20 mg PO DAILY [facility] Last Admin: 02/11/19 09:45 Dose: 20 mg HCTZ/Losartan Potassium (Hyzaar -) 2 tab PO DAILY [facility] Last Admin: 02/11/19 11:01 Dose: Not Given Heparin Sodium (Porcine) (Heparin -) 5,000 unit SQ TID [facility] Last Admin: 02/12/19 06:07 Dose: 5,000 unit Lactated Ringer's (Lactated Ringers Solution) 1,000 mls @ 75 mls/hr IV ASDIR [facility] Last Admin: 02/12/19 00:44 Dose: 75 mls/hr Ertapenem 1 gm/ Sodium (Chloride) 50 mls @ 100 mls/hr IVPB DAILY [facility] Last Admin: 02/11/19 15:18 Dose: 100 mls/hr Ibuprofen (Motrin -) 400 mg PO Q6H PRN PRN Reason: PAIN Metoprolol Succinate (Toprol Xl -) 100 mg PO DAILY [facility] Last Admin: 02/11/19 09:43 Dose: 100 mg Ondansetron HCl (Zofran Injection) 4 mg IVPUSH Q6H PRN PRN Reason: NAUSEA AND/OR VOMITING - Objective Vital Signs: Vital Signs Temperature 98.2 F 02/12/19 05:47 Pulse Rate 68 02/12/19 05:47 Respiratory Rate 20 02/12/19 05:47 Blood Pressure 114/50 L 02/12/19 05:47 O2 Sat by Pulse Oximetry (%) 95 02/11/19 21:00 Cardiovascular: Yes: Regular Rate and Rhythm Respiratory: Yes: Regular, CTA Bilaterally Gastrointestinal: Yes: Normal Bowel Sounds, Soft. No: Tenderness Genitourinary: Yes: Barry Present, Other (scrotal swelling) Labs: INR, PTT INR 1.06 (0.83-1.09) 02/08/19 22:20 Assessment/Plan - Problems (1) Cellulitis of scrotum Assessment/Plan: -ID on board -no leukocytosis -afebrile -pain control -Scrotal US shows no doppler evidence of torsion, diffuse scrotal edema, bilateral hydroceles moderate in size, interposed between testes is nonspecific 5x3.6x3.5cm fluid structurecontaining intraluminal debris -Urology on board Code(s): N49.2 - INFLAMMATORY DISORDERS OF SCROTUM (2) Constipation Assessment/Plan: -Dulcolax Code(s): K59.00 - CONSTIPATION, UNSPECIFIED (3) Cystitis Assessment/Plan: -ID on board -tati leukocytosis -afebrile -UA shows 3+ leuks, 1+ protein -UC prelim positive -Zosyn -FC Code(s): N30.90 - CYSTITIS, UNSPECIFIED WITHOUT HEMATURIA (4) GERD (gastroesophageal reflux disease) Assessment/Plan: -Famotidine Code(s): K21.9 - GASTRO-ESOPHAGEAL REFLUX DISEASE WITHOUT ESOPHAGITIS (5) HTN (hypertension) Assessment/Plan: -Amlodipine, Losartan/HCTZ, Metoprolol -low Na diet Code(s): I10 - ESSENTIAL (PRIMARY) HYPERTENSION (6) Hydronephrosis Assessment/Plan: -Urology on board -POD #1 Cystoscopy -Bladder US urine retention, mild bilateral hydronephrosis noted secondary to urinary bladder overdistention -will need suprapubic cystoscopy at later date -FC Code(s): N13.30 - UNSPECIFIED HYDRONEPHROSIS (7) Prostate CA Code(s): C61 - MALIGNANT NEOPLASM OF PROSTATE (8) Urinary retention -Barry Code(s): R33.9 - RETENTION OF URINE, UNSPECIFIED
[2019-02-12 08:22] LABS: HEMATOCRIT 27.3 % (35.4-49); MCH 32.1 pg (25.7-33.7); MCHC 32.8 g/dl (32.0-35.9); MEAN CELL VOLUME 97.8 fl (80-96); MEAN PLT VOLUME 9.2 fl (7.5-11.1); PLATELET COUNT 220 K/MM3 (134-434); RDW 13.7 % (11.9-15.9); WHITE BLOOD COUNT 6.7 K/mm3 (4.0-10.0)
[2019-02-12 08:39] LABS: ALBUMIN 2.6 g/dl (3.4-5.0); BILIRUBIN,TOTAL 0.2 mg/dL (0.2-1); BLOOD UREA NITROGEN 21.2 mg/dL (7-18); CREATININE 1.1 mg/dL (0.55-1.3); POTASSIUM 4.6 mmol/L (3.5-5.1)
[2019-02-12] MEDS: FAMOTIDINE 20 MG TABLET PO SCH (09:17)
[2019-02-12] MEDS: BISACODYL 5 MG TABLET.DR (FP) PO SCH ×2 (09:17→21:12)
[2019-02-12] MEDS: amLODIPine BESYLATE 5 MG TABLET (FP) PO SCH (09:27)
[2019-02-12] MEDS: LOSARTAN 50MG/HCTZ 12.5MG 1 TAB (FP) PO SCH (09:27)
[2019-02-12] MEDS: ERTAPENEM SODIUM 1 GM in SODIUM CHLORIDE 50 ML IVPB SCH (10:59)
--- NOTE | 2019-02-12 13:55 | PN ---
Progress Note (short form) - Note Progress Note: UROLOGY NOTE. POD#2 S/P VAPORIZATION OF BLADDER NECK AND PLACEMENT OF HU. UH IS PATENT, URINE IS CLEAR. PLAN- KEEP HU FOR 7-10 DAYS. WILL D/C HU IN OFFICE NEXT WK.
[2019-02-13] MEDS: HEPARIN NA (PORCINE) 5,000 UNITS/ML 1ML VIAL SQ SCH (06:08)
[2019-02-13] MEDS ORDERED: PT OWN MED DRAWER 7, Y5N ONE ×2 (08:47→09:26)
[2019-02-13] MEDS: ERTAPENEM SODIUM 1 GM in SODIUM CHLORIDE 50 ML IVPB SCH (09:15)
[2019-02-13] MEDS: BISACODYL 5 MG TABLET.DR (FP) PO SCH (09:24)
[2019-02-13] MEDS: amLODIPine BESYLATE 5 MG TABLET (FP) PO SCH (09:24)
[2019-02-13] MEDS: LOSARTAN 50MG/HCTZ 12.5MG 1 TAB (FP) PO SCH (09:24)
[2019-02-13] MEDS: FAMOTIDINE 20 MG TABLET PO SCH (09:27)
--- NOTE | 2019-02-13 09:44 | PN ---
Progress Note, Physician Chief Complaint: BL scrotal swelling Prostate ca with biochemical recurrence Bilateral hydronephrosis Bilateral epidid-orchitis History of Present Illness: NAD Seen by Urology s/p cystoscopy On IV abx - Current Medication List Current Medications: Active Medications Acetaminophen (Tylenol -) 650 mg PO Q6H PRN PRN Reason: PAIN LEVEL 1-5 Last Admin: 02/12/19 15:04 Dose: 650 mg Amlodipine Besylate (Norvasc -) 5 mg PO DAILY [facility] Last Admin: 02/13/19 09:24 Dose: 5 mg Bisacodyl (Dulcolax -) 5 mg PO BID [facility] Last Admin: 02/13/19 09:24 Dose: 5 mg Famotidine (Pepcid -) 20 mg PO DAILY [facility] Last Admin: 02/13/19 09:27 Dose: 20 mg HCTZ/Losartan Potassium (Hyzaar -) 2 tab PO DAILY [facility] Last Admin: 02/13/19 09:24 Dose: 2 tab Heparin Sodium (Porcine) (Heparin -) 5,000 unit SQ TID [facility] Last Admin: 02/13/19 06:08 Dose: 5,000 unit Ertapenem 1 gm/ Sodium (Chloride) 50 mls @ 100 mls/hr IVPB DAILY [facility] Last Admin: 02/13/19 09:15 Dose: 100 mls/hr Ibuprofen (Motrin -) 400 mg PO Q6H PRN PRN Reason: PAIN Metoprolol Succinate (Toprol Xl -) 100 mg PO DAILY [facility] Last Admin: 02/13/19 09:24 Dose: 100 mg Ondansetron HCl (Zofran Injection) 4 mg IVPUSH Q6H PRN PRN Reason: NAUSEA AND/OR VOMITING - Objective Vital Signs: Vital Signs Temperature 98.2 F 02/13/19 06:00 Pulse Rate 65 02/13/19 06:00 Respiratory Rate 20 02/13/19 06:00 Blood Pressure 123/60 02/13/19 06:00 O2 Sat by Pulse Oximetry (%) 96 02/12/19 21:00 Constitutional: Yes: Well Nourished, No Distress, Calm Cardiovascular: Yes: Regular Rate and Rhythm Respiratory: Yes: Regular Gastrointestinal: Yes: WNL Genitourinary: Yes: Wallace Present Musculoskeletal: Yes: WNL Extremities: Yes: WNL Edema: No Peripheral Pulses WNL: Yes Neurological: Yes: Alert, Oriented Psychiatric: Yes: Alert, Oriented Labs: CBC, BMP 02/12/19 07:00 02/12/19 07:00 INR, PTT INR 1.06 (0.83-1.09) 02/08/19 22:20 Problem List - Problems (1) Prostate CA Problems reviewed: Yes Code(s): C61 - MALIGNANT NEOPLASM OF PROSTATE (2) Hydronephrosis Assessment/Plan: -Urology on board -POD #2 Cystoscopy -Bladder US urine retention, mild bilateral hydronephrosis noted secondary to urinary bladder overdistention -will need suprapubic cystoscopy at later date -D/C with wallace Problems reviewed: Yes Code(s): N13.30 - UNSPECIFIED HYDRONEPHROSIS (3) Epididymo-orchitis, acute Assessment/Plan: -IV abx -Wallace catheter -Urology consult -S/P Cystoscopy -ID consult -afebrile -no leukocytosis -UC: 02/08/19 22:15 Urine - Urine Clean Catch Urine Culture - Final Citrobacter Freundii -BC negative -Cleared by Urology to be discharged with wallace -If cleared by ID, switch to PO abx and d/c home Problems reviewed: Yes Code(s): N45.3 - EPIDIDYMO-ORCHITIS Assessment/Plan see problem list
[2019-02-13 10:58] LABS: BASO % 0.4 % (0-2.0); EOS % 8.8 % (0-4.5); HEMATOCRIT 32.1 % (35.4-49); HEMOGLOBIN 10.4 GM/dL (11.7-16.9); LYMPH % 20.2 % (8-40); MCH 31.9 pg (25.7-33.7); MCHC 32.5 g/dl (32.0-35.9); NEUT % 57.6 % (42.8-82.8); PLATELET COUNT 287 K/MM3 (134-434); RBC 3.27 M/mm3 (4.00-5.60); RDW 13.9 % (11.9-15.9); WHITE BLOOD COUNT 5.2 K/mm3 (4.0-10.0)
[2019-02-13 11:08] LABS: ALBUMIN 2.8 g/dl (3.4-5.0); BILIRUBIN,TOTAL 0.2 mg/dL (0.2-1); BLOOD UREA NITROGEN 18.6 mg/dL (7-18); CALCIUM 8.5 mg/dL (8.5-10.1); CREATININE 1.1 mg/dL (0.55-1.3); POTASSIUM 4.6 mmol/L (3.5-5.1); TOT PROT 6.9 g/dl (6.4-8.2)
--- NOTE | 2019-02-13 12:50 | PN ---
Progress Note, Physician History of Present Illness: S/P CYSTO NO C/O SCROTAL PAIN AFEBRILE WBC WNL URINE C/S CITROBACTER - Current Medication List Current Medications: Active Medications Acetaminophen (Tylenol -) 650 mg PO Q6H PRN PRN Reason: PAIN LEVEL 1-5 Last Admin: 02/12/19 15:04 Dose: 650 mg Amlodipine Besylate (Norvasc -) 5 mg PO DAILY [facility] Last Admin: 02/13/19 09:24 Dose: 5 mg Bisacodyl (Dulcolax -) 5 mg PO BID [facility] Last Admin: 02/13/19 09:24 Dose: 5 mg Famotidine (Pepcid -) 20 mg PO DAILY [facility] Last Admin: 02/13/19 09:27 Dose: 20 mg HCTZ/Losartan Potassium (Hyzaar -) 2 tab PO DAILY [facility] Last Admin: 02/13/19 09:24 Dose: 2 tab Heparin Sodium (Porcine) (Heparin -) 5,000 unit SQ TID [facility] Last Admin: 02/13/19 06:08 Dose: 5,000 unit Ertapenem 1 gm/ Sodium (Chloride) 50 mls @ 100 mls/hr IVPB DAILY [facility] Last Admin: 02/13/19 09:15 Dose: 100 mls/hr Ibuprofen (Motrin -) 400 mg PO Q6H PRN PRN Reason: PAIN Metoprolol Succinate (Toprol Xl -) 100 mg PO DAILY [facility] Last Admin: 02/13/19 09:24 Dose: 100 mg Ondansetron HCl (Zofran Injection) 4 mg IVPUSH Q6H PRN PRN Reason: NAUSEA AND/OR VOMITING - Objective Vital Signs: Vital Signs Temperature 97.7 F 02/13/19 09:00 Pulse Rate 60 02/13/19 09:00 Respiratory Rate 18 02/13/19 09:00 Blood Pressure 126/66 02/13/19 09:00 O2 Sat by Pulse Oximetry (%) 96 02/13/19 09:00 Constitutional: Yes: No Distress Eyes: Yes: Conjunctiva Clear Cardiovascular: Yes: Regular Rate and Rhythm, S1, S2 Respiratory: Yes: CTA Bilaterally Genitourinary: Yes: Other (+ SCROTAL SWELLING LESS R EPIDIDYMAL INDURATION/ TENDERNESS) Labs: CBC, BMP 02/13/19 10:03 02/13/19 10:03 INR, PTT INR 1.06 (0.83-1.09) 02/08/19 22:20 Assessment/Plan S/P CYSTO BLADDER OUTLET OBSTRUCTION ACUTE EPIDIDYMITIS IMPROVED CITROBACTER UTI SUBSTITUTE LEVAQUIN 500MG PO QD X 10D OUTPATIENT FOLLOW UP
[2019-02-13 13:18] VITALS: BP 107/54; PULSE 53; TEMP 98.2
== END 2019-02-13 14:46 | disposition home or self-care (01) | DRG 669 ==
LOC: JER 19:42 → JERBED 02-09 00:35 → J6S 02-09 03:26
PROVIDERS: ADMIT Internal Medicine; ATTEND Family Medicine
PROC: BT14YZZ Fluoroscopy of Kidneys, Ureters and Bladder using Other Contrast (ICD-10-PCS; 2019-02-10)
PROC: 0T9B80Z Drainage of Bladder with Drainage Device, Via Natural or Artificial Opening Endoscopic (ICD-10-PCS; 2019-02-10)
PROC: 0T5C8ZZ Destruction of Bladder Neck, Via Natural or Artificial Opening Endoscopic (ICD-10-PCS; principal; 2019-02-10 12:00)
DX: N30.40 Irradiation cystitis without hematuria (principal); N13.30 Unspecified hydronephrosis; R33.9 Retention of urine, unspecified; K21.9 Gastro-esophageal reflux disease without esophagitis; Z85.46 Personal history of malignant neoplasm of prostate; K59.00 Constipation, unspecified; I10 Essential (primary) hypertension; N45.3 Epididymo-orchitis; N35.919 Unspecified urethral stricture, male, unspecified site; N32.0 Bladder-neck obstruction; B96.89 Other specified bacterial agents as the cause of diseases classified elsewhere; Y84.2 Radiological procedure and radiotherapy as the cause of abnormal reaction of the patient, or of later complication, without mention of misadventure at the time of the procedure
CPT/HCPCS: 36415; 71045-TC-FY; 74178-TC; 76000-TC-FY; 76775-TC; 76856-TC; 76870-TC; 80048; 80053; 81003; 82803; 83605; 85025; 85027; 85610; 85730; 86850; 86900; 86901; 87040; 87086; 87186; 93005; 93010; 94010; 94760; 99285-25; C1887; J1644; Q9967